=== PATIENT | male | born 1975 | race Caucasian/White ===

== ENCOUNTER 2025-01-10 08:14 | Observation (INO) ==
[2025-01-10 08:21] VITALS: BMI 18.6
--- NOTE | 2025-01-10 08:25 | ED.PDOC ---
General HPI ED Provider: Dr. JOHN CAZARES MD Chief Complaint: Extremity Pain/Injury Stated Complaint: Patient is a 49-year-old male that reported to the emergency department for generalized pain. Patient has a history of chronic pain and is on chronic pain management with oxycodone 36 mg capsule sprinkle extended release. Patient stated that he does not know whether he had his medicines this morning but has a 10 out of 10 pain all over. Patient stated that he also is scheduled for an iron infusion here today at [facility] as he has iron deficiency anemia. Nursing staff contacted the floor and patient is able to go get his iron infusion once discharged. In the emergency department patient stated that his pain is no different than his usual pain. Patient had a fall out of a tree in 2017 and fractured his T9 and is a paraplegic. Patient has been seen here recently for similar symptoms and picked up his new prescription for oxycodone and has been taking it since. Patient stated that his pain was a burning and sharp pain in his legs. Patient denied any current chest pain, shortness of breath, nausea, vomiting, diarrhea, syncope, or any other acute symptoms. Patient's vital signs are currently stable. Patient's GCS is 15. Time Seen by Provider: 01/10/25 08:17 Mode of Arrival: Ambulance Information Source: Patient and EMT Primary Care Provider: DORY LEES MD Nursing and Triage Documentation Reviewed and Agree: Yes Opioid Naive vs. Tolerant What is Opioid Naive?: *Opioid Naive implies the patient is not already taking opioids or not chronically receiving opioids on a daily basis. *PRN dosing is not "usually" associated with tolerance. *Patients are at higher risk of over-sedation and aspiration. What is Opioid Tolerant?: *Opioid Tolerance implies less than the expected response to an opioid. *Acquired tolerance is defined by the patient taking 60mg of oral morphine daily (or equianalgesic dose of another opioid) for 1 week or more. *Often associated with chronic pain. *May take more than usual dose to achieve desired pain control. Review of Systems Review Of Systems Constitutional: Reports Other (Generalized pain) All Other Systems: Reviewed and Negative [facility] Medical History Suprapubic catheter Z93.59 - Other cystostomy status (ICD-10) Dilatation of esophagus K22.89 - Other specified disease of esophagus (ICD-10) History of blood transfusion Z92.89 - Personal history of other medical treatment (ICD-10) Family History (Updated 01/02/25 @ 13:32 by GRACIE RODRÍGUEZ) Mother No problems noted. FATHER Heart attack Social History (Updated 01/02/25 @ 13:37 by GRACIE RODRÍGUEZ) Smoking and tobacco status: Never smoker Alcohol intake: current Alcohol intake frequency: holidays/special occasions only Substance use type: does not use Agree to transfusion: Yes Household members: spouse and children Housing: house Marital status: M Number of children: 5 Highest education level completed: Bachelor's degree service: No Current occupational status: disabled Current occupational exposures/hazards: No Pets and animals: Yes Leisure activites: games and reading History of recent travel: No Do you think of yourself as: straight/heterosexual Current gender identity: male Seatbelt use: always Helmet use: No Drives intoxicated or rides with intoxicated water taxi driver: No Water heater temperature set < 120 degrees: Yes Working smoke detector in home: Yes Fire extinguisher in home: Yes Carbon monoxide detector in home: Yes Firearms in home: Yes Surgical History History of hip surgery bilateral Z98.890 - Other specified postprocedural states (ICD-10) H/O superior vena cava filter placement Z95.828 - Presence of other vascular implants and grafts (ICD-10) History of back surgery Z98.890 - Other specified postprocedural states (ICD-10) H/O abdominal surgery Z98.890 - Other specified postprocedural states (ICD-10) Physical Exam Physical Exam Appearance: Reports Well-nourished Ill-appearing: None Pain Distress: Moderate Eyes: Reports EOMI ENT: Reports Nose normal and Oropharynx normal Neck: Supple Respiratory: Reports Airway patent, Breath sounds equal and Respirations nonlabored Cardiovascular: Reports RRR, No rub and Tachycardia GI/: Reports Soft, Nontender, No masses and Bowel sounds normal Musculoskeletal: Reports Normal strength (but paraplegic in the lower extremities) and ROM intact Skin: Reports Warm, Dry and Normal color Neurological: Reports Motor intact (in upper extremities), Alert and Oriented Psychiatric: Reports Other (Patient is mood is agitated and has cursed at multiple staff members.) Physician Progress Note Physician Progress Note: Patient is a 49-year-old male that reported to the emergency department for generalized pain. Patient has a history of chronic pain and is on chronic pain management with oxycodone 36 mg capsule sprinkle extended release. Patient stated that he does not know whether he had his medicines this morning but has a 10 out of 10 pain all over. Patient stated that he also is scheduled for an iron infusion here today at [facility] as he has iron deficiency anemia. Nursing staff contacted the floor and patient is able to go get his iron infusion once discharged. In the emergency department patient stated that his pain is no different than his usual pain. Patient had a fall out of a tree in 2017 and fractured his T9 and is a paraplegic. Patient has been seen here recently for similar symptoms and picked up his new prescription for oxycodone and has been taking it since. Patient stated that his pain was a burning and sharp pain in his legs. Patient denied any current chest pain, shortness of breath, nausea, vomiting, diarrhea, syncope, or any other acute symptoms. Patient's vital signs are currently stable. Patient's GCS is 15. This patient has been very abrasive and rude to myself and nursing staff. He has cursed at us multiple times. An example of this was when I was asking him about his prior injury and being a quadriplegic he told me that I should F---ing know this. I asked him not to speak to us like that and that I had never seen him before so I was trying to get pertinent information for the exam. The patient continued to curse throughout the entire interview and during the physical examination. - Will order baseline labs. - Will order a urinalysis and UDS. - Will give the patient IM Dilaudid 1 mg once for 10 out of 10 pain. - CBC shows patient's iron deficiency anemia that is chronic in nature is stable today. Patient has a hemoglobin of 9.9. Patient does have a slight elevation in his creatinine at 1.5. Patient is refusing IV line for IV fluids. I have encouraged patient to drink fluids. - Patient stated that he was nauseated. Will give the patient IM ondansetron 4 mg once for nausea. - Patient's heart rate is elevated at 128 bpm. Will order an EKG, troponin, and lactic acid. - Patient's heart rates come down to 102 bpm. - EKG shows sinus tachycardia with a rate of 102 bpm. Normal axis noted. Possible left atrial argument also noted. No acute STEMI. EKG interpreted by ER physician. - Troponin is negative. Patient's heart score is 2 which puts him at low risk for adverse cardiovascular events upon discharge from the hospital. - Lactic acid is negative. - Patient agreed to let nursing staff try an IV line. Nurse manager demand was able to get a 22-gauge IV line. - Patient has a leukocyte esterase and nitrite positive UTI with hematuria. Will give the patient IV Rocephin 1 g for UTI. - Patient is dehydrated with a creatinine of 1.5 (KOBE). Will give IV normal saline 1 L bolus. - (0808) spoke to Juanita hospitalist at [facility] and discussed patient's case. Discussed need for further pain management with IV medications and IV antibiotics for UTI as patient has an indwelling catheter. Mirela has agreed to accept this patient for observational admission. Discussed this plan with the patient and his at bedside and they both agree to admission for observation. I also discussed that I spoke with the hospitalist and she wants the patient's to bring his oxycodone extended release 36 mg to the hospital so that we can give it as scheduled along with any additional medicine needed to control his pain. I discussed that we needed her to bring the medication because we do not carry the extended release in the hospital. Patient's has agreed to bring the medication to the hospital. Patient's vital signs are stable at time of admission for observation. Course Course 01/10/25 08:38 01/10/25 08:38 Orders, Labs, Meds: Lab Review 01/10/25 01/10/25 08:38 09:00 WBC 7.25 RBC 4.52 L Hgb 9.6 L Hct 34.9 L MCV 77.2 L MCH 21.2 L MCHC 27.5 L RDW Coeff of Adam 31.3 H Plt Count 333 Immature Gran % (Auto) 0.3 Neut % (Auto) 83.3 H Lymph % (Auto) 7.9 L [place] % (Auto) 8.1 Eos % (Auto) 0.1 Baso % (Auto) 0.3 Neut # (Auto) 6.0 Lymph # (Auto) 0.6 [place] # (Auto) 0.6 Eos # (Auto) 0.0 Baso # (Auto) 0.0 Immature Gran # (Auto) 0.0 Plt Morphology Comment Hypochromasia 3+ Anisocytosis 3+ Microcytosis 3+ Sodium 135.8 Potassium 4.21 Chloride 100.9 Carbon Dioxide 28.4 Anion Gap 10.71 BUN 17.5 Creatinine 1.58 H Estimated GFR (MDRD) 46.00 BUN/Creatinine Ratio 11.07 Glucose 150.7 H Lactic Acid 1.71 Calcium 8.20 L Total Bilirubin 0.34 AST 47.1 ALT 11.1 Alkaline Phosphatase 203.5 H Troponin I < 0.012 Total Protein 7.86 Albumin 3.16 L Globulin 4.70 Albumin/Globulin Ratio 0.67 Urine Color Yellow Urine Clarity Turbid Urine pH 7.0 Ur Specific [place] >=1.030 Urine Protein 2+ H Urine Glucose (UA) Negative Urine Ketones Negative Urine Blood 3+ H Urine Nitrite Positive H Urine Bilirubin Negative Urine Urobilinogen 0.2 Ur Leukocyte Esterase 1+ H Urine Microscopic RBC 10-20 Urine Microscopic WBC 50-100 Ur Squamous Epith Cells Not Reportable Amorphous Sediment 2+ Urine Bacteria 3+ Urine Opiates Screen Positive H Ur Oxycodone Screen Positive H Urine Methadone Screen Negative Ur Barbiturates Screen Negative U Tricyclic Antidepress Negative Ur Phencyclidine Scrn Negative Ur Amphetamine Screen Negative U Methamphetamines Scrn Negative U Benzodiazepines Scrn Positive H Urine Cocaine Screen Negative U Cannabinoids Screen Negative Orders Category Date Time Status EKG-(ED & IP/OBS ONLY) Stat CARDIO 01/10/25 09:05 Completed CBC W/ AUTO DIFF Stat LAB 01/10/25 08:38 Completed CMP [COMPREHENSIVE METABOLIC PANEL] Stat LAB 01/10/25 08:38 Completed LACTIC ACID Stat LAB 01/10/25 08:38 Completed RBC MORPHOLOGY Stat LAB 01/10/25 08:38 Completed TROPONIN I Stat LAB 01/10/25 08:38 Completed URINALYSIS C & S IF INDICATED Stat LAB 01/10/25 09:00 Completed URINE CULTURE Stat LAB 01/10/25 09:00 Received URINE DRUG SCREEN (RAPID FOR ED) [DRUG SCREEN, URINE, LAB 01/10/25 09:00 Completed RAPID] Stat Ceftriaxone 1 gm Vial [Rocephin 1 gm Vial] Meds 01/10/25 09:51 Discontinued 1 gm IVP ONCE ONE Hydromorphone HCl [Dilaudid 1 mg/ml Syringe] Meds 01/10/25 08:30 Discontinued 1 mg IM ONCE STA Ondansetron HCl/Pf [Zofran Sdv] Meds 01/10/25 09:02 Discontinued 4 mg IM ONCE STA Sodium Chloride 0.9% [Sodium Chloride] 1,000 ml Meds 01/10/25 10:41 Active IV BOLUS Medications Generic Name Dose Route Start Last Admin Trade Name Freq PRN Reason Stop Dose Admin Sodium Chloride 1,000 mls @ 1,000 mls/hr 01/10/25 10:41 Sodium Chloride IV 01/10/25 11:40 BOLUS ONE Discontinued Medications Generic Name Dose Route Start Last Admin Trade Name Freq PRN Reason Stop Dose Admin Ceftriaxone Sodium 1 gm 01/10/25 09:51 Ceftriaxone 1 Gm Vial IVP 01/10/25 09:52 ONCE ONE Hydromorphone HCl 1 mg 01/10/25 08:30 01/10/25 09:15 Hydromorphone Hcl 1 Mg/Ml Syringe IM 01/10/25 08:31 0.5 mg ONCE STA Administration Ondansetron HCl 4 mg 01/10/25 09:02 01/10/25 09:08 Ondansetron Hcl/Pf 4 Mg/2 Ml Sdv IM 01/10/25 09:03 4 mg ONCE STA Administration Vital Signs: Temp Pulse Resp BP Pulse Ox 01/10/25 08:17 97.6 F 115 H 12 144/87 H 95 Discharge Plan Discharge Patient Disposition: PLACED OBSERVATION Discharge Problem: Uncontrolled pain, Chronic flaccid quadriplegia, Chronic iron deficiency anemia, KOBE (acute kidney injury) Chronic pain Qualifiers: Chronic pain type: due to trauma Qualified Code(s): G89.21 - Chronic pain due to trauma UTI (urinary tract infection) Qualifiers: Urinary tract infection type: acute cystitis Hematuria presence: with hematuria Qualified Code(s): N30.01 - Acute cystitis with hematuria Did you review [place] [employer] [place] for [place] controlled substances?: Not Applicable ED Provider: JOHN CAZARES Condition: Stable
[2025-01-10 08:43] LABS: IMMATURE GRANULOCYTE # (AUTO) 0.0 (0.0-1.0); IMMATURE GRANULOCYTE % (AUTO) 0.3 % (0.0-5.0); RDW COEFFICIENT OF VARIATION 31.3 % (11.6-14.8)
[2025-01-10] MEDS: DILAUDID 1 MG/ML SYRINGE IM STA (08:49)
[2025-01-10 08:55] LABS: CREATININE 1.58 mg/dL (0.60-1.10)
[2025-01-10] MEDS: ZOFRAN SDV IM STA (09:08)
[2025-01-10 09:34] LABS: GLUCOSE, URINE (UA) Negative (NEGATIVE); LEUKOCYTE ESTERASE ,URINE 1+ (NEGATIVE); URINE, BLOOD 3+ (NEGATIVE)
[2025-01-10 09:38] LABS: AMORPHOUS SEDIMENT,UR 2+ (NOT PRESENT); URINE WBC, MICROSCOPIC 50-100 (0-2)
[2025-01-10 09:45] LABS: AMPHETAMINE SCREEN,URINE NEGATIVE (NEGATIVE); CANNABINOID SCREEN,URINE NEGATIVE (NEGATIVE); COCAIN SCREEN,URINE NEGATIVE (NEGATIVE); METHADONE URINE SCREEN NEGATIVE (NEGATIVE); METHAMPHETAMINES SCREEN,URINE NEGATIVE (NEGATIVE); OXYCODONE URINE SCREEN POSITIVE (NEGATIVE); TRICYCLIC ANTIDEPRESSANTS URIN NEGATIVE (NEGATIVE)
[2025-01-10] MEDS: ROCEPHIN 1 GM VIAL IVP ONE (10:48)
[2025-01-10] MEDS: SODIUM CHLORIDE 1,000 ML IV ONE (11:02)
[2025-01-10] MEDS: REGLAN IVP STA (11:30)
[2025-01-10] MEDS: BENADRYL IVP STA (11:31)
[2025-01-10] MEDS: LACTATED RINGERS 1,000 ML IV SCH (12:11)
[2025-01-10] MEDS ORDERED: ZOFRAN SDV IVP PRN (12:12)
--- NOTE | 2025-01-10 12:30 | PCM ---
Date of Service Date Seen by Provider: 01/10/25 Time Seen by Provider: 12:30 Admit Day/Time Admission Date: 01/10/25 Admission Time: 10:51 Reason for Admission Chief Complaint: UNCONTROLLED PAIN,UTI,KOBE,DEHYDRATION Hospital Provider Hospital Provider: DAVID JAIME PA-C, [facility] Primary Care Physician Primary Care Physician: DORY LEES MD History of Present Illness History of Present Illness: Patient is a 49 year old male with paraplegia s/p complete T9 injury, chronic pain medications, chronic osteomyelitis and wounds, hyperlipidemia, CKD, GERD, who presents for worsening pain. He had a vist to the ER earlier this week with breakthrough pain and withdrawal symptoms. He was tachycardic and diaphoretic. Had been out of his pain medication as the pharmacy had run out. He was treated with narcotics and discharged to home. He presented today with worsening lower ext pain. He has chronic sacral and foot wounds. He states he feels like his feet are being "torn off". He also complains of numbness and tingling at times. He states he's been taking his medications as prescribed. "None of it helps". Patient was given dilaudid in ER. Patient noted to have UTI on urinalysis. Given rocephin. Admitted to med surg for UTI with chronic suprapubic catheter. Of note, patient sees Dr. Smart for wound care for his chronic wounds. He follows with Dr. Ugarte for his chronic osteo and is on bactrim bid currently. Patient has a PEG tube but states it hasn't been used since May as he eats well by mouth "when he's feeling ok." States it was placed in April during a hospitalization due to him going a long time while ill without eating well. They are hopeful to get it removed as they feel it is causing issues for him, but have not gotten a GI referral yet in this area to do so. Case Discussed With Case Discussed With: Patient's case was discussed with the ER Physicians, Dr. Butt. [facility] Medical History Suprapubic catheter Z93.59 - Other cystostomy status (ICD-10) Dilatation of esophagus K22.89 - Other specified disease of esophagus (ICD-10) History of blood transfusion Z92.89 - Personal history of other medical treatment (ICD-10) Surgical History History of hip surgery bilateral Z98.890 - Other specified postprocedural states (ICD-10) H/O superior vena cava filter placement Z95.828 - Presence of other vascular implants and grafts (ICD-10) History of back surgery Z98.890 - Other specified postprocedural states (ICD-10) H/O abdominal surgery Z98.890 - Other specified postprocedural states (ICD-10) Family History Mother No problems noted. FATHER Heart attack Social History Smoking and tobacco status: Never smoker Alcohol intake: current Alcohol intake frequency: holidays/special occasions only Substance use type: does not use Agree to transfusion: Yes Household members: spouse and children Housing: house Marital status: M Number of children: 5 Highest education level completed: Bachelor's degree service: No Current occupational status: disabled Current occupational exposures/hazards: No Pets and animals: Yes Leisure activites: games and reading History of recent travel: No Do you think of yourself as: straight/heterosexual Current gender identity: male Seatbelt use: always Helmet use: No Drives intoxicated or rides with intoxicated limousine driver: No Water heater temperature set < 120 degrees: Yes Working smoke detector in home: Yes Fire extinguisher in home: Yes Carbon monoxide detector in home: Yes Firearms in home: Yes Allergies Allergies Allergy/AdvReac Type Severity Reaction Status Date / Time No Known Allergies Allergy Verified 01/10/25 08:30 Current Medications Home Medications Baclofen (Baclofen 10 Mg Tablet) 20 mg PO TID PRN PRN Reason: muscle spasms Citalopram Hydrobromide (Citalopram Hydrobromide 20 Mg Tablet) 40 mg PO DAILY JARRET Ferrous Sulfate (Ferrous Sulfate 324 Mg Tablet.Dr) 325 mg PO DAILY JARRET Hydromorphone HCl (Hydromorphone Hcl 1 Mg/Ml Syringe) 1 mg IVP Q6HR PRN PRN Reason: MODERATE PAIN Last Admin: 01/10/25 13:56 Dose: 1 mg Lactated Ringer's (Lactated Ringers) 1,000 mls @ 75 mls/hr IV .[id number] [facility] Last Admin: 01/10/25 12:11 Dose: 75 mls/hr CEFTRIAXONE/D5W 1 GM PREMIX (Rocephin 1 Gm/50 Ml D5w) 1 gm in 50 mls @ 100 mls/hr IV DAILY [facility] Stop: 01/14/25 08:59 Multivitamins (Multivitamin 1 Tab) 1 tab PO DAILY [facility] Non-Formulary Medication (Naloxone [Narcan]) 4 mg RONNY Q3M PRN PRN Reason: overdose Non-Formulary Medication (Oxycodone Myristate [Xtampza Er]) 72 mg PO BIDWM2 [facility] Ondansetron HCl (Ondansetron Hcl/Pf 4 Mg/2 Ml Sdv) 4 mg IVP Q6H PRN PRN Reason: Nausea / Vomiting Pregabalin (Pregabalin 50 Mg Capsule) 100 mg PO TID [facility] Promethazine HCl (Promethazine Hcl 25 Mg Tablet) 25 mg PO DAILY PRN PRN Reason: NAUSEA/VOMITING Saccharomyces Boulardii (Saccharomyces Boulardii 250 Mg Capsule) 250 mg PO BID [facility] Trimethoprim/Sulfamethoxazole (Sulfamethoxazole/Trimethoprim 800/160 Mg Tablet) 1 tab PO 2XD [facility] Stop: 01/13/25 20:59 citalopram 40 mg tablet (Celexa) 40 mg PO QDAY 11/06/24 [History Confirmed 01/10/25] ferrous sulfate 325 mg (65 mg iron) tablet 325 mg PO DAILY 11/06/24 [History Confirmed 01/10/25] multivitamin 1 tab PO QDAY 11/06/24 [History Confirmed 01/10/25] promethazine 25 mg tablet 25 mg PO QDAY PRN nausea and vomiting 11/06/24 [History Confirmed 01/10/25] naloxone 4 mg/actuation nasal spray (Narcan) 4 mg intranasal Q3M PRN opioid overdose #2 ea 12/17/24 [Rx Confirmed 01/10/25] baclofen 20 mg tablet 20 mg PO TID PRN spasms 01/07/25 [History Confirmed 01/10/25] diclofenac sodium 75 mg tablet,delayed release 75 mg PO BID #60 tabs 01/07/25 [Rx Confirmed 01/10/25] pregabalin 200 mg capsule 200 mg PO TID #90 caps 01/07/25 [Rx Confirmed 01/10/25] sulfamethoxazole 800 mg-trimethoprim 160 mg tablet 1 tab PO 2XD 01/07/25 [History Confirmed 01/10/25] oxycodone myristate 36 mg capsule sprinkle extended release 12hr(DON'T CRUSH) (Xtampza ER) 72 mg PO BID severe pain (scale score 7-10) 01/10/25 [History Confirmed 01/10/25] Opioid Naive vs. Tolerant Does Patient Take Opioids?: Yes Is Patient Opioid Naive?: No What is Opioid Naive?: *Opioid Naive implies the patient is not already taking opioids or not chronically receiving opioids on a daily basis. *PRN dosing is not "usually" associated with tolerance. *Patients are at higher risk of over-sedation and aspiration. Is Patient Opioid Tolerant?: Yes What is Opioid Tolerant?: *Opioid Tolerance implies less than the expected response to an opioid. *Acquired tolerance is defined by the patient taking 60mg of oral morphine daily (or equianalgesic dose of another opioid) for 1 week or more. *Often associated with chronic pain. *May take more than usual dose to achieve desired pain control. Review of Systems Constitutional: Reports Fatigue and Loss of appetite; Denies Fever Head: Reports Normocephalic and Atraumatic Cardiovascular: Denies Chest pain Respiratory: Denies Cough or Shortness of air Gastrointestinal: Denies Nausea, Vomiting or Abdominal pain Genitourinary: Reports Other (+chronic suprapubic catheter ) Neurological: Reports Other (+paraplegic ) Psychiatric: Reports Other (+easily agitated, depressed ) Physical examination Most Recent Vital Signs: Most Recent Vital Signs Temperature 97.6 F 01/10/25 08:17 Temperature Source Infrared 01/10/25 08:17 Pulse Rate 88 01/10/25 11:33 Respiratory Rate 10 L 01/10/25 11:33 Blood Pressure 126/78 01/10/25 11:33 O2 Sat by Pulse Oximetry 99 01/10/25 11:33 Height 6 ft 01/10/25 08:17 Weight 62.2 kg 01/10/25 08:17 Appearance: Positive No Apparent Distress, Alert and Oriented x3, Ill-Appearing and Other (+chronically ill appearing, easily agitated when asked questions ) Skin: Positive Other (+pallor ); Negative Good Turgor HEENT: Positive Normocephalic and Atraumatic Neck: Positive Supple and Midline Trachea Chest/Lungs: Positive Clear to Auscultation Bilaterally; Negative Rales, Rhonci or Wheezes Heart: Positive RRR GI/: Positive Soft, Nontender, Bowel Sounds Normal and Other (+ostomy noted, PEG tube with mild erythema surrounding site. ) Extremities: Positive Intact Peripheral Pulses; Negative Edema Neurological: Positive Alert, Oriented and Other (+paraplegic ) Psychiatric: Positive Oriented x4; Negative Appropriate Mood (agitated, depressed ) Additional Findings: - multiple wounds, see chart for photos Labs This Visit Labs This Visit: Labs This Visit 01/10/25 01/10/25 08:38 09:00 WBC 7.25 RBC 4.52 L Hgb 9.6 L Hct 34.9 L MCV 77.2 L MCH 21.2 L MCHC 27.5 L RDW Coeff of Adam 31.3 H Plt Count 333 Immature Gran % (Auto) 0.3 Neut % (Auto) 83.3 H Lymph % (Auto) 7.9 L [place] % (Auto) 8.1 Eos % (Auto) 0.1 Baso % (Auto) 0.3 Neut # (Auto) 6.0 Lymph # (Auto) 0.6 [place] # (Auto) 0.6 Eos # (Auto) 0.0 Baso # (Auto) 0.0 Immature Gran # (Auto) 0.0 Plt Morphology Comment Hypochromasia 3+ Anisocytosis 3+ Microcytosis 3+ Sodium 135.8 Potassium 4.21 Chloride 100.9 Carbon Dioxide 28.4 Anion Gap 10.71 BUN 17.5 Creatinine 1.58 H Estimated GFR (MDRD) 46.00 BUN/Creatinine Ratio 11.07 Glucose 150.7 H Lactic Acid 1.71 Calcium 8.20 L Total Bilirubin 0.34 AST 47.1 ALT 11.1 Alkaline Phosphatase 203.5 H Troponin I < 0.012 Total Protein 7.86 Albumin 3.16 L Globulin 4.70 Albumin/Globulin Ratio 0.67 Urine Color Yellow Urine Clarity Turbid Urine pH 7.0 Ur Specific Pinson >=1.030 Urine Protein 2+ H Urine Glucose (UA) Negative Urine Ketones Negative Urine Blood 3+ H Urine Nitrite Positive H Urine Bilirubin Negative Urine Urobilinogen 0.2 Ur Leukocyte Esterase 1+ H Urine Microscopic RBC 10-20 Urine Microscopic WBC 50-100 Ur Squamous Epith Cells Not Reportable Amorphous Sediment 2+ Urine Bacteria 3+ Urine Opiates Screen Positive H Ur Oxycodone Screen Positive H Urine Methadone Screen Negative Ur Barbiturates Screen Negative U Tricyclic Antidepress Negative Ur Phencyclidine Scrn Negative Ur Amphetamine Screen Negative U Methamphetamines Scrn Negative U Benzodiazepines Scrn Positive H Urine Cocaine Screen Negative U Cannabinoids Screen Negative Review Statement Review Statement: I have independently reviewed and interpreted the labs/EKGs/imaging that were ordered by the ER provider. I have reviewed all outside records that are available currently in our EMR including imaging/notes/labs from previous visits. Plan Plan: 1. Acute UTI in setting of suprapubic catheter - No cultures here to go off of. Will give rocephin for now, await urine culture. 2. Chronic pain, uncontrolled - Spoke with Gloria Rae NP, his pain management provider. Will stop diclofenac given bump in Cr, recent anemia, and fci bactrim. Patient states it's not working anyway. Will give dilaudid IV prior to dressing changes today. Will have pt f/u outpatient with Gloria. 3. Chronic osteomyelitis of pelvis - Follows with Dr. Ugarte, on bactrim DS BID snf. Updated labs sent to his office with patient's permission, as he's been noncompliant with outpatient lab orders for them. CRP ordered but pending (send out). 4. Chronic stage III-IV wounds of sacrum, feet, etc - present upon admission, stable per , see photos in chart, cont wound care dressings as he does at home, cont outpatient f/u with wound care 5. Iron deficiency anemia - Pt required transfer recently for acute anemia requiring transfusion, we could not get compatible blood here in reasonable time. Now getting venofer transfusions q3d x5 doses, due for one today, will go ahead and give while here. Hgb is improved. He feels the anemia has exacerbated his pain. Had egd/colonoscopy at [facility] at that time. DVT Prophylaxis: Holding in light of anemia Time Spent: Greater than 80 minutes spent with patient, 50% of the time spent with this patient was devoted to counseling and coordination of care. [facility] minutes spent discussing advance care planning. Admit to: Obs Discussed Plan of Care with Dr. Jj Charles. Medications Medication Orders: Medications Ordered Category Date Time Status Ondansetron HCl/Pf [Zofran Sdv] Meds 01/10/25 12:12 Active 4 mg IVP Q6H PRN Ringers Lactated Solution [Lactated Ringers] 1,000 ml Meds 01/10/25 12:30 Active IV 75 mls/hr Saccharomyces Boulardii [Florastor] Meds 01/10/25 21:00 Active 250 mg PO BID
[2025-01-10] MEDS: VENOFER IV ONE (13:53)
[2025-01-10] MEDS: SODIUM CHLORIDE IV ONE (13:53)
[2025-01-10] MEDS: DILAUDID 1 MG/ML SYRINGE IVP PRN (13:56)
[2025-01-10] MEDS ORDERED: PHENERGAN TAB PO PRN (13:57)
[2025-01-10] MEDS ORDERED: LYRICA PO SCH (15:00)
[2025-01-10] MEDS: [UNRECOGNIZED DRUG - REMARK] PO SCH (17:18)
[2025-01-10] MEDS: FLORASTOR PO SCH (20:59)
[2025-01-10] MEDS: BACTRIM DS 800/160 MG PO SCH (20:59)
[2025-01-10] MEDS: LYRICA PO SCH (21:00)
[2025-01-11] MEDS ORDERED: DILAUDID 0.5 MG/0.5 ML SYRINGE IM ONE (00:34)
[2025-01-11] MEDS: DILAUDID 0.5 MG/0.5 ML SYRINGE IVP ONE (00:46)
[2025-01-11] MEDS: BACLOFEN PO PRN (01:55)
[2025-01-11 05:28] LABS: IMMATURE GRANULOCYTE # (AUTO) 0.0 (0.0-1.0); IMMATURE GRANULOCYTE % (AUTO) 0.3 % (0.0-5.0); RDW COEFFICIENT OF VARIATION 31.0 % (11.6-14.8)
[2025-01-11 05:42] LABS: CREATININE 0.71 mg/dL (0.60-1.10)
[2025-01-11] MEDS: CELEXA PO SCH (08:32)
[2025-01-11] MEDS: MULTIVITAMIN TABLET PO SCH (08:32)
[2025-01-11] MEDS: ROCEPHIN 1 GM/50 ML D5W 1 GM/50 ML BAG IV SCH (08:33)
[2025-01-11] MEDS: LYRICA PO SCH (08:36)
[2025-01-11] MEDS ORDERED: LYRICA PO SCH (09:00)
--- NOTE | 2025-01-11 10:27 | PCM.PROG ---
Date/Time Seen Date Seen by Provider: 01/11/25 Time Seen by Provider: 08:30 Provider Provider: DAVID JAIME PA-C, [facility] ([facility])ist Group Chief Complaint Chief Complaint: UNCONTROLLED PAIN,UTI,KOBE,DEHYDRATION Subjective Subjective: Patient and his Theresa are requesting transfer to a spinal cord injury unit/rehab. We discussed how there are very limited options in this area for speciality care such as that. He states he has been to [facility] in [facility] and they are requesting to be transferred to that facility. He states his pain is too unbearable and they fear something more is wrong with him than his usual chronic conditions. He states the pain in his feet and lower legs has become severe and he cannot go home like this. He continues to come to the ER for uncontrolled pain but then another problem is found and even once it is addressed, he continues to have pain. He would like answers and speciality support. Objective Appearance: Positive No Apparent Distress, Alert and Oriented x3 and Other (+chronically ill appearing ) Chest/Lungs: Positive Clear to Auscultation Bilaterally; Negative Rales, Rhonci or Wheezes Heart: Positive RRR GI/: Positive Soft, Nontender, Bowel Sounds Normal and Other (+PEG tube noted, mild erythema around insertion site. Colostomy noted. ) Neurological: Positive Alert, Oriented and Other (+paraplegic) Additional Findings: Chronic wounds noted to feet/lower ext, no acute infection findings. No erythema/swelling of calves. Vital Signs Vital Signs: Vital Signs: Last 24 Hours 01/10/25 11:33 01/10/25 11:49 01/10/25 11:49 Temperature 97.0 F L Temperature Source Temporal Artery Scan Pulse Rate 88 90 Respiratory Rate 10 L 20 18 Blood Pressure 126/78 Blood Pressure Mean Blood Pressure Right Arm 132/89 Blood Pressure Location Blood Pressure Position Supine O2 Sat by Pulse Oximetry 99 92 L Oxygen Delivery Method Room Air Room Air Height 6 ft Weight 62.1 kg Telemetry Type Telemetry Monitoring Telemetry Heart Rate EKG ND Interval EKG QRS Interval Telemetry Strip Reading 01/10/25 12:00 01/10/25 13:00 01/10/25 13:00 Temperature Temperature Source Pulse Rate Respiratory Rate Blood Pressure Blood Pressure Mean Blood Pressure Right Arm Blood Pressure Location Blood Pressure Position O2 Sat by Pulse Oximetry Oxygen Delivery Method Room Air Room Air Height Weight Telemetry Type Remote Telemetry Telemetry Monitoring Started Telemetry Heart Rate 90 EKG ND Interval 0.19 EKG QRS Interval 0.07 Telemetry Strip Reading NSR 01/10/25 13:50 01/10/25 13:50 01/10/25 15:00 Temperature 97.7 F Temperature Source Temporal Artery Scan Pulse Rate 100 Respiratory Rate 18 Blood Pressure 161/93 H Blood Pressure Mean 115 Blood Pressure Right Arm Blood Pressure Location Right Arm Blood Pressure Position Supine O2 Sat by Pulse Oximetry 94 L Oxygen Delivery Method Room Air Room Air Room Air Height Weight Telemetry Type Telemetry Monitoring Telemetry Heart Rate EKG ND Interval EKG QRS Interval Telemetry Strip Reading 01/10/25 16:00 01/10/25 17:00 01/10/25 18:00 Temperature Temperature Source Pulse Rate Respiratory Rate Blood Pressure Blood Pressure Mean Blood Pressure Right Arm Blood Pressure Location Blood Pressure Position O2 Sat by Pulse Oximetry Oxygen Delivery Method Room Air Room Air Room Air Height Weight Telemetry Type Telemetry Monitoring Telemetry Heart Rate EKG ND Interval EKG QRS Interval Telemetry Strip Reading 01/10/25 18:00 01/10/25 19:00 01/10/25 19:00 Temperature 96.9 F L Temperature Source Temporal Artery Scan Pulse Rate 90 Respiratory Rate 20 Blood Pressure 116/70 Blood Pressure Mean 85 Blood Pressure Right Arm Blood Pressure Location Left Arm Blood Pressure Position Supine O2 Sat by Pulse Oximetry 96 Oxygen Delivery Method Room Air Room Air Height Weight Telemetry Type Remote Telemetry Telemetry Monitoring Continues Telemetry Heart Rate 89 EKG ND Interval 0.16 EKG QRS Interval 0.07 Telemetry Strip Reading SR 01/10/25 20:00 01/10/25 20:00 01/10/25 21:00 Temperature Temperature Source Pulse Rate Respiratory Rate Blood Pressure Blood Pressure Mean Blood Pressure Right Arm Blood Pressure Location Blood Pressure Position O2 Sat by Pulse Oximetry Oxygen Delivery Method Room Air Room Air Room Air Height Weight Telemetry Type Telemetry Monitoring Telemetry Heart Rate EKG ND Interval EKG QRS Interval Telemetry Strip Reading 01/10/25 21:27 01/10/25 22:00 01/10/25 23:00 Temperature 99.8 F Temperature Source Oral Pulse Rate 85 Respiratory Rate 18 Blood Pressure 131/61 Blood Pressure Mean 84 Blood Pressure Right Arm Blood Pressure Location Right Arm Blood Pressure Position Supine O2 Sat by Pulse Oximetry 96 Oxygen Delivery Method Room Air Room Air Room Air Height Weight Telemetry Type Telemetry Monitoring Telemetry Heart Rate EKG ND Interval EKG QRS Interval Telemetry Strip Reading 01/11/25 00:00 01/11/25 01:00 01/11/25 01:00 Temperature Temperature Source Pulse Rate Respiratory Rate Blood Pressure Blood Pressure Mean Blood Pressure Right Arm Blood Pressure Location Blood Pressure Position O2 Sat by Pulse Oximetry Oxygen Delivery Method Room Air Room Air Height Weight Telemetry Type Remote Telemetry Telemetry Monitoring Continues Telemetry Heart Rate 95 EKG ND Interval 0.17 EKG QRS Interval 0.06 Telemetry Strip Reading SR 01/11/25 02:00 01/11/25 02:00 01/11/25 03:00 Temperature 98.9 F Temperature Source Temporal Artery Scan Pulse Rate 79 Respiratory Rate 18 Blood Pressure 124/65 Blood Pressure Mean 84 Blood Pressure Right Arm Blood Pressure Location Right Arm Blood Pressure Position Supine O2 Sat by Pulse Oximetry 95 Oxygen Delivery Method Room Air Room Air Room Air Height Weight Telemetry Type Telemetry Monitoring Telemetry Heart Rate EKG ND Interval EKG QRS Interval Telemetry Strip Reading 01/11/25 04:00 01/11/25 05:00 01/11/25 05:34 Temperature 98.7 F Temperature Source Temporal Artery Scan Pulse Rate 86 Respiratory Rate 16 Blood Pressure 122/77 Blood Pressure Mean 92 Blood Pressure Right Arm Blood Pressure Location Right Arm Blood Pressure Position Supine O2 Sat by Pulse Oximetry 98 Oxygen Delivery Method Room Air Room Air Room Air Height Weight Telemetry Type Telemetry Monitoring Telemetry Heart Rate EKG ND Interval EKG QRS Interval Telemetry Strip Reading 01/11/25 05:38 01/11/25 07:00 01/11/25 08:00 Temperature Temperature Source Pulse Rate Respiratory Rate Blood Pressure Blood Pressure Mean Blood Pressure Right Arm Blood Pressure Location Blood Pressure Position O2 Sat by Pulse Oximetry Oxygen Delivery Method Room Air Room Air Room Air Height Weight Telemetry Type Telemetry Monitoring Telemetry Heart Rate EKG ND Interval EKG QRS Interval Telemetry Strip Reading 01/11/25 09:00 01/11/25 10:00 Temperature Temperature Source Pulse Rate Respiratory Rate Blood Pressure Blood Pressure Mean Blood Pressure Right Arm Blood Pressure Location Blood Pressure Position O2 Sat by Pulse Oximetry Oxygen Delivery Method Room Air Room Air Height Weight Telemetry Type Telemetry Monitoring Telemetry Heart Rate EKG ND Interval EKG QRS Interval Telemetry Strip Reading Lab Results Lab Results: Lab Results: Last 24 Hours 01/11/25 01/10/25 05:18 08:38 WBC 3.47 L RBC 3.83 L Hgb 8.2 L Hct 29.5 L MCV 77.0 L MCH 21.4 L MCHC 27.8 L RDW Coeff of Adam 31.0 H Plt Count 285 Immature Gran % (Auto) 0.3 Neut % (Auto) 57.0 Lymph % (Auto) 29.1 [place] % (Auto) 12.1 H Eos % (Auto) 0.9 Baso % (Auto) 0.6 Neut # (Auto) 2.0 Lymph # (Auto) 1.0 [place] # (Auto) 0.4 Eos # (Auto) 0.0 Baso # (Auto) 0.0 Immature Gran # (Auto) 0.0 Hypochromasia 3+ Anisocytosis 3+ Sodium 135.4 Potassium 4.09 Chloride 103.3 Carbon Dioxide 29.9 Anion Gap 6.29 BUN 6.7 L Creatinine 0.71 D Estimated GFR (MDRD) 117.00 BUN/Creatinine Ratio 9.43 Glucose 96.2 D Calcium 8.15 L Total Bilirubin 0.33 AST 32.9 ALT 9.0 Alkaline Phosphatase 172.1 H D C-Reactive Prot, Quant 126 H Total Protein 6.86 Albumin 2.73 L Globulin 4.13 Albumin/Globulin Ratio 0.66 Additional Comments Additional Comments: I have independently reviewed and interpreted the labs/EKGs/imaging ordered during this hospital stay. I have reviewed outside records that are available in our EMR that pertain to medical stay including imaging/notes/labs from previous visits. Active Medications Active Medications: Medications Generic Name Dose Route Start Last Admin Trade Name Prabhjotq PRN Reason Stop Dose Admin Baclofen 20 mg 01/10/25 13:57 01/11/25 01:55 Baclofen 10 Mg Tablet PO 20 mg TID PRN Administration muscle spasms Citalopram Hydrobromide 40 mg 01/11/25 09:00 01/11/25 08:32 Citalopram Hydrobromide 20 Mg Tablet PO 40 mg DAILY JARRET Administration Ferrous Sulfate 325 mg 01/11/25 14:30 Ferrous Sulfate 324 Mg Tablet. PO DAILY JARRET Hydromorphone HCl 1 mg 01/10/25 13:30 01/11/25 05:13 Hydromorphone Hcl 1 Mg/Ml Syringe IVP 1 mg Q6HR PRN Administration MODERATE PAIN CEFTRIAXONE/D5W 1 GM PREMIX 1 gm in 50 mls @ 100 mls/hr 01/11/25 09:00 01/11/25 08:33 Rocephin 1 Gm/50 Ml D5w IV 01/14/25 08:59 100 mls/hr DAILY JARRET Administration Multivitamins 1 tab 01/11/25 09:00 01/11/25 08:32 Multivitamin 1 Tab PO 1 tab DAILY JARRET Administration Non-Formulary Medication 4 mg 01/10/25 13:57 Naloxone [Narcan] RONNY Q3M PRN overdose Non-Formulary Medication 72 mg 01/10/25 17:00 01/11/25 07:56 Oxycodone Myristate [Xtampza Er] PO 72 mg [id number] JARRET Administration Ondansetron HCl 4 mg 01/10/25 12:12 Ondansetron Hcl/Pf 4 Mg/2 Ml Sdv IVP Q6H PRN Nausea / Vomiting Pregabalin 200 mg 01/11/25 09:00 01/11/25 08:36 Pregabalin 50 Mg Capsule PO 200 mg TID JARRET Administration Promethazine HCl 25 mg 01/10/25 13:57 Promethazine Hcl 25 Mg Tablet PO DAILY PRN NAUSEA/VOMITING Saccharomyces Boulardii 250 mg 01/10/25 21:00 01/11/25 08:32 Saccharomyces Boulardii 250 Mg Capsule PO 250 mg BID JARRET Administration Trimethoprim/Sulfamethoxazole 1 tab 01/10/25 21:00 01/11/25 08:31 Sulfamethoxazole/Trimethoprim 800/160 Mg Tablet PO 1 tab 2XD JARRET Administration Plan Plan: 1. Acute UTI in setting of suprapubic catheter - No cultures here to go off of. Will give rocephin for now, urine culture showing gram negative rods. 2. Chronic pain s/p T9 spinal cord injury, uncontrolled - Spoke with Gloria Rae NP, his pain management provider. Will stop diclofenac given bump in Cr, recent anemia, and prison bactrim. Patient states it's not working anyway. Dilaudid IV has been ordered, he states it is not lasting long enough to control his pain. Pt is requesting transfer. 3. Chronic osteomyelitis of pelvis - Follows with Dr. Ugarte, infectious disease, on bactrim DS BID watermelon harvesting supervisor. Updated labs sent to his office with patient's permission, as he's been noncompliant with outpatient lab orders for them. CRP 126, last one in August was 84. Patient and refer to MRI imaging done at [facility] but I do not have access to those records currently. 4. Chronic stage III-IV wounds of sacrum, feet, etc - present upon admission, stable per , see photos in chart, cont wound care dressings as he does at home, cont outpatient f/u with wound care 5. Iron deficiency anemia - Pt required transfer recently to [facility] for acute anemia requiring transfusion, we could not get compatible blood here in reasonable time. Now getting venofer transfusions q3d x5 doses, had a dose yesterday. He feels the anemia has exacerbated his pain. Had egd/colonoscopy at [facility] at that time. DVT Prophylaxis: Holding in light of anemia Patient has had 3 visits to ER now due to exacerbated pain. The first visit in late November his hgb was low at 5.4. He required transfer to [facility] due to his antibodies and unable to get compatible blood to this area in a reasonable time. He then presented on Jan 07 due to extreme pain, the local pharmacy did not have his oxy and he had been without for about 5 days. He had multiple episodes of vomiting. [place] to be in withdrawal. Was given narcotics in ER with improvement. He then presented 01/10 with pain as well. Was noted to have a UTI and was admitted due to this. Patient denies any recent trauma or changes that could've led to him having such significant pain in the last few weeks. He is on baclofen, oxycodone myristate, and lyrica without improvement. Spoke with his pain management provider who recommended dilaudid IV while in hospital but would not make any changes outpatient at this time due to his high level of MME/day. Patient and Theresa would like to be transferred. They prefer [facility] in [facility], as he has been there before and they specialize in care with spinal cord injuries. I spoke with Gerry in the inpatient rehab department and provided our fax number, he will fax a checklist of items they need to determine if patient is a candidate for their program. Update: Was unable to reach the SCI rehab in [facility] again. Called multiple times, left multiple messages. Never received checklist via fax. I tried explaining to the patient and family that this is very unlikely to happen due to location, lack of resources in area, and likely not a qualifiable stay for inpatient rehab elsewhere. They are adamant that he be transferred to a specialty rehab center for SCI. Patient asked us to reach out to a rehab facility in [facility]. Spoke with an web marketing coordinator there that states he would likely not be a candidate for their program, as their program is for new SCI and they do not typically take patients with chronic injuries. Explained this to the patient and his Theresa. They are asking what the plan is to work up his pain at this point. Unable to do MRIs here due to his pain pump, per radiology, it is not compatible. Will get CT of thoracic and lumbar spine to see if there are any acute changes to explain his increased pain such as paraspinal abscess, etc. Update: CT of pelvis, l spine, and t spine show no acute findings. It does mention a significant central canal stenosis at t10 level. Tried to reach out to [facility] neurosurg but no one is technical communication teacher for next several days. Per patient preference, reached out to [facility] at [facility] in [place]. Dr. Carter, STEFAN there was kind enough to speak with me regarding this case. He feels clinically the patient sounds to be having phantom pain and unlikely affected by the T10 stenosis but that this can be evaluated further outpatient, does not warrant inpatient work up. This was relayed to the patient and family. Review Statement Review Statement: I have personally discussed and reviewed the patient's visit/currently labs/imaging/decision making with Dr. Charles, my supervising attending. Greater that 50 minutes spent with patient, 50% of the time spent with this patient was devoted to counseling and coordination of care.
[2025-01-11] MEDS: FERROUS SULFATE PO SCH (16:35)
--- NOTE | 2025-01-11 17:19 | CT ---
EXAM: CT OF THE PELVIS WITH CONTRAST TECHNIQUE: CT of the pelvis was performed with IV contrast. Multiplanar reformats were made. HISTORY: Status post chronic wound pelvis. COMPARISON: 05/07/2024. FINDINGS: Large effusion with chronic deformity of the right hip. Acetabular dysplasia and/or remodeling bilaterally. There is been destruction versus resection of the femoral head and neck bilaterally. Postoperative changes are present in the lumbar spine. There is a decubitus ulcer over the lateral trochanteric region of the hip. On the left side and posteriorly on the right extending to the joint capsule. Large ulcerations extends to the inferior pubic rami bilaterally with chronic defects of the ischial tuberosity is. Findings are a progression compared to prior. Both ischial tuberosities appear to be largely remnants left greater than right. The coccyx and eight portion of the sacrum including the inferior S3, S4 and S5 elements are absent with decubitus ulceration. IMPRESSION: 1. Chronic osteomyelitis and bony destructive changes which have progressed when compared to the previous examination of 05/07/2024 in the sacrococcygeal region and pelvic ring. The findings within the hips are relatively similar to previous examination. 2. 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 All CT scans are performed using dose optimization techniques as appropriate to the performed exam and includes at least one of the following: Automated exposure control, adjustment of the mA and/or kV according to size, and the use of iterative reconstruction technique. All CT scans are performed using dose optimization techniques as appropriate to the performed exam and include at least one of the following: Automated exposure control, adjustment of the mA and/or kV according to size, and the use of iterative reconstruction technique.
--- NOTE | 2025-01-11 17:26 | CT ---
EXAM: CT THORACIC SPINE WITH CONTRAST HISTORY: Worsened lower extremity pain. COMPARISON: 04/20/2024 CT chest. TECHNIQUE: Axial CT imaging of the thoracic spine was performed with contrast. Sagittal and coronal reconstructed images were made to better evaluate pathology. FINDINGS: There is no acute fracture. Chronic mild anterior wedge deformity at T11. Mild S-shaped scoliosis in the mid to lower thoracic spine. A dorsal column stimulator is seen entering at the T7 - T8 level and extending cephalad to T5. Posterior fusion extending from T8 inferiorly to the lumbar spine without hardware complication. There is anatomic vertebral alignment. There is mild intervertebral disc space narrowing seen at the T10-11 level with posterior vertebral body calcification at this level creating severe central canal stenosis. IMPRESSION: T10-11 posterior vertebral body calcification which may be posttraumatic or ossification of the posterior longitudinal ligament creating severe central canal stenosis. T11 chronic mild anterior wedge deformity. Scoliosis, dorsal column stimulator and posterior fusion without hardware complication. All CT scans are performed using dose optimization techniques as appropriate to the performed exam and include at least one of the following: Automated exposure control, adjustment of the mA and/or kV according to size, and the use of iterative reconstruction technique.
--- NOTE | 2025-01-11 17:26 | CT ---
EXAMINATION: CT LUMBAR SPINE WITH CONTRAST HISTORY: Lower extremity pain. TECHNIQUE: Computed tomography (CT) of the lumbar spine was performed according to standard protocol with intravenous contrast. The thoracic spine and pelvis were also imaged but will be interpreted separately. Contrast Dose: None. CT Dose Reduction Techniques Performed: Yes. COMPARISON: 11/28/2024 FINDINGS: There are 5 non-rib bearing lumbar type vertebrae. Patient is status post surgical fixation posteriorly from at least T9, superior extent not included, to L4, as before. Bilateral pedicle screws at least at T10, T11, and T12, and L2, L3, and L4, as before. The surgical hardware appears to be intact. The coronal images again show apparent mild scoliosis of the lower lumbar spine, convex to the left. The sagittal images show some loss of the lumbar lordosis, stable. Stable minimal retrolisthesis of L5 on S1. Stable chronic mild compression deformity of the T11 superior endplate. Stable chronic Schmorl's node with endplate sclerosis and mild compression of the L5 superior endplate anteriorly. Disc heights are normal. Stable mild bilateral facet arthropathy of the mid and lower lumbar spine. At L5 - S1, stable disc osteophyte complex and facet arthropathy. Combined with minimal retrolisthesis, findings result in mild to moderate bilateral neural foraminal narrowing at L5 - S1, stable. Sacral decubitus ulcer, again noted. The previously seen absence versus resection of the coccyx and lower sacrum was mostly not included in the examination. Small region of cortical destruction and lucency of underlying bone of the lower sacrum posteriorly on the left and right, grossly stable. Trace bilateral dependent pleural effusions, decreased in size. Stable cortical scarring of the right kidney. Stable 1.1 cm cyst of the right kidney. IVC filter, again noted. IMPRESSION: 1. Surgical fixation from as high as T9, superior extent not included, through L4, again noted. Intact hardware. 2. Sacral decubitus ulcer, again noted. 3. The previously seen absence versus resection of the coccyx and lower sacrum was mostly not included in the examination. 4. Grossly stable findings of osteomyelitis of posterior aspects of the lower sacrum bilaterally. 5. Stable loss of the lumbar lordosis and minimal retrolisthesis of L5 on S1. 6. Stable mild to moderate bilateral neural foraminal narrowing at L5 - S1. 7. For findings in the thoracic spine and pelvis, please refer to separate reports. All CT scans are performed using dose optimization techniques as appropriate to the performed exam and include at least one of the following: Automated exposure control, adjustment of the mA and/or kV according to size, and the use of iterative reconstruction technique.
[2025-01-12 05:43] LABS: IMMATURE GRANULOCYTE # (AUTO) 0.0 (0.0-1.0); IMMATURE GRANULOCYTE % (AUTO) 0.3 % (0.0-5.0); RDW COEFFICIENT OF VARIATION 30.7 % (11.6-14.8)
[2025-01-12 05:55] LABS: CREATININE 0.67 mg/dL (0.60-1.10)
[2025-01-12 06:21] VITALS: BP 106/69; PULSE 77; RESP 18; TEMP 98.2
--- NOTE | 2025-01-12 08:52 | DCSUM ---
Admission Date Admission Date: 01/10/25 Discharge Date Discharge Date: 01/12/25 Admission Diagnosis Admission Diagnosis: 1. Acute UTI in setting of suprapubic catheter 2. KOBE, stage I Discharge Diagnosis Discharge Diagnosis: 1. Acute UTI in setting of suprapubic catheter due to klebsiella 2. Chronic pain s/p T9 spinal cord injury, uncontrolled 3. Chronic osteomyelitis of pelvis 4. 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 Iron deficiency anemia - improving 6. KOBE, stage I - resolved Hospital Provider Hospital Provider: DAV[facility] Physician Primary Care Physician: DORY LEES MD Summary of History and Physical Summary of History and Physical: Patient is a 49 year old male with paraplegia s/p complete T9 injury, chronic pain medications, chronic osteomyelitis and wounds, hyperlipidemia, CKD, GERD, who presents for worsening pain. He had a vist to the ER earlier this week with breakthrough pain and withdrawal symptoms. He was tachycardic and diaphoretic. Had been out of his pain medication as the pharmacy had run out. He was treated with narcotics and discharged to home. He presented today with worsening lower ext pain. He has chronic sacral and lower extremity wounds. He states he feels like his feet are being "torn off". He also complains of numbness and tingling at times. He states he's been taking his medications as prescribed. "None of it helps". Patient was given dilaudid in ER. Patient noted to have UTI on urinalysis. Given rocephin. Admitted to med surg for UTI with chronic suprapubic catheter. Of note, patient sees Dr. Smart for wound care for his chronic wounds. Per patient and his wounds are slowly improving, no acute concerns. He follows with Dr. Ugarte for his chronic osteo and is on bactrim bid currently. Patient has a PEG tube but states it hasn't been used since May as he eats well by mouth "when he's feeling ok." States it was placed in April during a hospitalization due to him going a long time while ill without eating well. They are hopeful to get it removed as they feel it is causing issues for him, but have not gotten a GI referral yet in this area to do so. Hospital Course Subjective: Regarding his UTI, he was treated with rocephin. UC grew klebsiella sensitive to cephalosporins, will send on 7 more days of cefpodoxime. Continue jail bactrim as well. Cont probiotic. Regarding his KOBE, this resolved day 1 with fluids. High risk of KOBE due to on jail bactrim and diclofenac, will stop diclofenac as patient states it doesn't help anyway. Regarding patient's acute on chronic lower ext pain - Initially spoke with patient's pain management provider Gloria Rae. Patient is on high doses of oxy, maxed out on lyrica, on baclofen, and the diclofenac. She agrees with sto pping diclofenac. Otherwise would not add on anything else to his regimen jail due to his already very high MME/day. In meantime, while admitted can do dilaudid to get ahead of his pain. IV dilaudid has been ordered q6hrs however patient continued to be unhappy with this dosing and frequency throughout his stay. On 01/11 patient and adamant about being transferred for management of his pain. Initially they were wanting transferred to a SCI specific rehabilitation center, preferably in [facility] or [facility]. Tried discussing with patient and multiple times how unlikely this would be accomplished for a number of reasons (it was Tuesday, limited resources/manpower in the hospital, also likely won't meet criteria for something like that at this time). However they continued to be adamant. The facility in [place] never got back with us. I was able to speak to an lactation coordinator at the [facility] who stated they typically only take "new" SCI patients and not chronic SCI patients, he likely would not meet criteria for their program. Discussed this with patient and . They then requested to be transferred to [facility] or back to [place]. Discussed with them we need to have an acute medically necessary reason to do so. He was then reluctantly agreeable to imaging. Unable to do MRI here due to his pain pump per rad. CT of thoracic, lumbar, and pelvis done. No acute findings. CT of thoracic spine did mention severe central canal stenosis. Unable to reach neurosurgery at [facility] as they have no one crown ironer. Per patient preference, then reached out next to [facility] in [place]. Spoke with Dr. Carter, neurosurgery crown ironer. He states this does not warrant inpatient work up, unlikely to be causing his current pain, and can f/u outpatient with local providers. Pt states he gets his baclofen pump changed [id number], last being about a month ago, and that he feels its functioning. Discussed his imaging mentioning a dorsal column stimulator, however patient states he "doesn't have one anymore, they never worked for him". Ultimately, we discussed that no acute cause has been found for his acute on chronic pain and he will need to continue outpatient f/u. He has an apt made on Tuesday with his pain management provider. Labs and vitals continue to be stable. Discharge to home in stable condition. Unfortunately, the patient was often verbally abusive to staff and overall unhappy with his care here. His was also very unhappy with his care here and frequently voiced her frustrations despite our best efforts to appease their wishes. Appearance: No Apparent Distress, Alert and Other (+chronically ill appearing. Has been comfortable in his bed, always on his phone or tablet, no signs of distress at any point during hospitalization. ) HEENT: MMM CVS: Other (RRR) Abdomen: Soft, Non-Tender, No Distention and Other (+PEG tube, colostomy, right lower abd baclofen pain pump ) Respiratory: No Accessory Muscle Use Extremities: No Edema Additional Findings: + chronic wounds with dressings c/d/i, see photos in chart for detail Vital Signs: Most Recent Vital Signs Temperature 98.2 F 01/12/25 06:00 Temperature Source Temporal Artery Scan 01/12/25 06:00 Temperature Source Infrared 01/10/25 08:17 Pulse Rate 77 01/12/25 06:00 Respiratory Rate 18 01/12/25 06:00 Blood Pressure 106/69 01/12/25 06:00 Blood Pressure Mean 81 01/12/25 06:00 Blood Pressure Right Arm 132/89 01/10/25 11:49 Blood Pressure Location Left Arm 01/12/25 06:00 Blood Pressure Position Supine 01/12/25 06:00 O2 Sat by Pulse Oximetry 92 L 01/12/25 06:00 Oxygen Delivery Method Room Air 01/12/25 06:00 Height 6 ft 01/10/25 11:49 Weight 62.1 kg 01/10/25 11:49 Telemetry Type Remote Telemetry 01/12/25 01:00 Telemetry Monitoring Continues 01/11/25 19:00 Telemetry Heart Rate 84 01/11/25 19:00 EKG [place] Interval 0.14 01/11/25 19:00 EKG QRS Interval 0.06 01/11/25 19:00 Telemetry Strip Reading REFUSES 01/12/25 01:00 Imaging: EXAM: CT THORACIC SPINE WITH CONTRAST HISTORY: Worsened lower extremity pain. COMPARISON: 04/20/2024 CT chest. TECHNIQUE: Axial CT imaging of the thoracic spine was performed with contrast. Sagittal and coronal reconstructed images were made to better evaluate pathology. FINDINGS: There is no acute fracture. Chronic mild anterior wedge deformity at T11. Mild S-shaped scoliosis in the mid to lower thoracic spine. A dorsal column stimulator is seen entering at the T7 - T8 level and extending cephalad to T5. Posterior fusion extending from T8 inferiorly to the lumbar spine without hardware complication. There is anatomic vertebral alignment. There is mild intervertebral disc space narrowing seen at the T10-11 level with posterior vertebral body calcification at this level creating severe central canal stenosis. IMPRESSION: T10-11 posterior vertebral body calcification which may be posttraumatic or ossification of the posterior longitudinal ligament creating severe central canal stenosis. T11 chronic mild anterior wedge deformity. Scoliosis, dorsal column stimulator and posterior fusion without hardware complication. EXAMINATION: CT LUMBAR SPINE WITH CONTRAST HISTORY: Lower extremity pain. TECHNIQUE: Computed tomography (CT) of the lumbar spine was performed according to standard protocol with intravenous contrast. The thoracic spine and pelvis were also imaged but will be interpreted separately. Contrast Dose: None. CT Dose Reduction Techniques Performed: Yes. COMPARISON: 11/28/2024 FINDINGS: There are 5 non-rib bearing lumbar type vertebrae. Patient is status post surgical fixation posteriorly from at least T9, superior extent not included, to L4, as before. Bilateral pedicle screws at least at T10, T11, and T12, and L2, L3, and L4, as before. The surgical hardware appears to be intact. The coronal images again show apparent mild scoliosis of the lower lumbar spine, convex to the left. The sagittal images show some loss of the lumbar lordosis, stable. Stable minimal retrolisthesis of L5 on S1. Stable chronic mild compression deformity of the T11 superior endplate. Stable chronic Schmorl's node with endplate sclerosis and mild compression of the L5 superior endplate anteriorly. Disc heights are normal. Stable mild bilateral facet arthropathy of the mid and lower lumbar spine. At L5 - S1, stable disc osteophyte complex and facet arthropathy. Combined with minimal retrolisthesis, findings result in mild to moderate bilateral neural foraminal narrowing at L5 - S1, stable. Sacral decubitus ulcer, again noted. The previously seen absence versus resection of the coccyx and lower sacrum was mostly not included in the examination. Small region of cortical destruction and lucency of underlying bone of the lower sacrum posteriorly on the left and right, grossly stable. Trace bilateral dependent pleural effusions, decreased in size. Stable cortical scarring of the right kidney. Stable 1.1 cm cyst of the right kidney. IVC filter, again noted. IMPRESSION: 1. Surgical fixation from as high as T9, superior extent not included, through L4, again noted. Intact hardware. 2. Sacral decubitus ulcer, again noted. 3. The previously seen absence versus resection of the coccyx and lower sacrum was mostly not included in the examination. 4. Grossly stable findings of osteomyelitis of posterior aspects of the lower sacrum bilaterally. 5. Stable loss of the lumbar lordosis and minimal retrolisthesis of L5 on S1. 6. Stable mild to moderate bilateral neural foraminal narrowing at L5 - S1. 7. For findings in the thoracic spine and pelvis, please refer to separate reports. EXAM: CT OF THE PELVIS WITH CONTRAST TECHNIQUE: CT of the pelvis was performed with IV contrast. Multiplanar reformats were made. HISTORY: Status post chronic wound pelvis. COMPARISON: 05/07/2024. FINDINGS: Large effusion with chronic deformity of the right hip. Acetabular dysplasia and/or remodeling bilaterally. There is been destruction versus resection of the femoral head and neck bilaterally. Postoperative changes are present in the lumbar spine. There is a decubitus ulcer over the lateral trochanteric region of the hip. On the left side and posteriorly on the right extending to the joint capsule. Large ulcerations extends to the inferior pubic rami bilaterally with chronic defects of the ischial tuberosity is. Findings are a progression compared to prior. Both ischial tuberosities appear to be largely remnants left greater than right. The coccyx and eight portion of the sacrum including the inferior S3, S4 and S5 elements are absent with decubitus ulceration. IMPRESSION: 1. Chronic osteomyelitis and bony destructive changes which have progressed when compared to the previous examination of 05/07/2024 in the sacrococcygeal region and pelvic ring. The findings within the hips are relatively similar to previous examination. 2. 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 Lab Results Last 24 Hours: 01/12/25 05:31 WBC 3.81 L RBC 3.88 L Hgb 8.4 L Hct 29.8 L MCV 76.8 L MCH 21.6 L MCHC 28.2 L RDW Coeff of Adam 30.7 H Plt Count 305 Immature Gran % (Auto) 0.3 Neut % (Auto) 61.4 Lymph % (Auto) 24.9 Montgomery % (Auto) 12.1 H Eos % (Auto) 0.8 Baso % (Auto) 0.5 Neut # (Auto) 2.3 Lymph # (Auto) 1.0 Montgomery # (Auto) 0.5 Eos # (Auto) 0.0 Baso # (Auto) 0.0 Immature Gran # (Auto) 0.0 Hypochromasia 2+ Anisocytosis 3+ Sodium 136.5 Potassium 4.12 Chloride 101.8 Carbon Dioxide 28.4 Anion Gap 10.42 BUN 3.2 L Creatinine 0.67 Estimated GFR (MDRD) 125.00 BUN/Creatinine Ratio 4.77 Glucose 95.5 Calcium 8.04 L Total Bilirubin 0.25 AST 32.1 ALT 9.3 Alkaline Phosphatase 164.1 H Total Protein 6.91 Albumin 2.76 L Globulin 4.15 Albumin/Globulin Ratio 0.66 Discharge Instructions Discharge Planning: Discharge Planning > [address] Jj Charles. Discharge Medications: Medications at Discharge (Home Meds & RX) citalopram 40 mg tablet (Celexa) 40 mg PO QDAY 11/06/24 ferrous sulfate 325 mg (65 mg iron) tablet 325 mg PO DAILY 11/06/24 multivitamin 1 tab PO QDAY 11/06/24 promethazine 25 mg tablet 25 mg PO QDAY PRN nausea and vomiting 11/06/24 naloxone 4 mg/actuation nasal spray (Narcan) 4 mg intranasal Q3M PRN opioid overdose #2 ea 12/17/24 baclofen 20 mg tablet 20 mg PO TID PRN spasms 01/07/25 pregabalin 200 mg capsule 200 mg PO TID #90 caps 01/07/25 sulfamethoxazole 800 mg-trimethoprim 160 mg tablet 1 tab PO 2XD 01/07/25 oxycodone myristate 36 mg capsule sprinkle extended release 12hr(DON'T CRUSH) (Xtampza ER) 72 mg PO BID severe pain (scale score 7-10) 01/10/25 cefpodoxime 200 mg tablet 200 mg PO BID 7 days #14 tabs 01/12/25 Discharge Plan Discharge Discharge Orders: Discharge Patient (ONCE); Ordered 01/12/25 Ordered By: DAVID JAIME Activity Restrictions/Additional Instructions: DISCHARGE TO HOME DX: UTI, DEHYDRATION, UNCONTROLLED PAIN FOLLOW UP WITH PAIN MANAGEMENT AND PCP ANTIBIOTIC HAS BEEN SENT TO YOUR PHARMACY, IT WILL BE IN ADDITION TO THE BACTRIM CONTINUE PROBIOTIC Care Plan Goals: Problem: Infection Goal #1: No signs/symptoms of infection Instructions: Monitor for sign/symptoms of infection Monitor temperature Goal #2: White blood cell counts Within Normal Limits Instructions: Obtain labs per physician orders Problem: Impaired Skin Integrity Goal: Improve skin integrity Instructions: Ambulate or up to chair as tolerated Increase oral intake if indicated Diet consult if indicated Keep bedding and clothing warm/dry Apply aloe vesta cream as needed Patient Disposition: HOME WITH FAMILY CARE Prescriptions: New cefpodoxime 200 mg Tablet 200 mg PO BID 7 Days Qty: 14 0RF Rx Instructions: must administer with a meal/food Continued pregabalin 200 mg capsule 200 mg PO TID Qty: 90 0RF sulfamethoxazole-trimethoprim 800-160 mg tablet 1 tab PO 2XD Patient Comments: takes for osteomylitis baclofen 20 mg tablet 20 mg PO TID PRN (Reason: spasms) Xtampza ER 36 mg cap,sprinkl,ER12hr(DONT CRUSH) 72 mg PO BID Rx Instructions: must administer with a meal/food multivitamin Tablet 1 tab PO QDAY citalopram [Celexa] 40 mg tablet 40 mg PO QDAY ferrous sulfate 325 mg (65 mg iron) tablet 325 mg PO DAILY promethazine 25 mg tablet 25 mg PO QDAY PRN (Reason: nausea and vomiting) naloxone [Narcan] 4 mg/actuation spray,non-aerosol 4 mg intranasal Q3M PRN (Reason: opioid overdose) Qty: 2 0RF Rx Instructions: spray 1 dose into ONE nostril; alternate nostrils w each dose until help arrives Discontinued diclofenac sodium 75 mg tablet,delayed release (DR/EC) 75 mg PO BID Qty: 60 0RF Did you review [place] [employer] for ALL controlled substances?: Yes Discussed opioids are addictive and Narcan is available by prescription or from pharmacy.: Yes Condition: Stable Referrals: GLORIA RAE APRN [NURSE PRACTITIONER, NURSE PRACTITIONER] - 01/14/25 2:30 pm Referral Note: PAIN MANAGEMENT APT DORY LEES MD [Primary Care Provider, Family Practice] - 01/15/25 2:00 pm
[2025-01-13] MEDS ORDERED: FERROUS SULFATE PO SCH (09:00)
== END 2025-01-12 10:45 | disposition home or self-care (01) ==
LOC: ED 08:14 → MEDSURG B 08:14
PROVIDERS: ADMIT Hospitalist; ATTEND Physician Assistant
DX: G82.20 Paraplegia, unspecified; Z93.1 Gastrostomy status; N30.01 Acute cystitis with hematuria; L89.614 Pressure ulcer of right heel, stage 4; Z96.0 Presence of urogenital implants; G89.21 Chronic pain due to trauma; K21.9 Gastro-esophageal reflux disease without esophagitis; T83.511A Infection and inflammatory reaction due to indwelling urethral catheter, initial encounter; N17.9 Acute kidney failure, unspecified; E78.5 Hyperlipidemia, unspecified; E86.0 Dehydration; Z51.81 Encounter for therapeutic drug level monitoring; Z79.899 Other long term (current) drug therapy; Z74.3 Need for continuous supervision; N18.9 Chronic kidney disease, unspecified; D50.9 Iron deficiency anemia, unspecified; M86.659 Other chronic osteomyelitis, unspecified thigh; Z87.440 Personal history of urinary (tract) infections; L89.153 Pressure ulcer of sacral region, stage 3; L89.613 Pressure ulcer of right heel, stage 3; B96.1 Klebsiella pneumoniae [K. pneumoniae] as the cause of diseases classified elsewhere; Z93.3 Colostomy status